=== PATIENT | female | born 1955 | race Caucasian/White ===

== ENCOUNTER 2018-05-27 10:09 | Emergency (ER) | payer MEDICARE, OTHER ==
[2018-05-27 10:35] VITALS: BP 128/77
[2018-05-27] MEDS ORDERED: LEVOTHYROXIN100 MC1 PO (10:45)
[2018-05-27] MEDS ORDERED: GLIMEPIRIDE4 MG PO (10:46)
[2018-05-27] MEDS ORDERED: BENZTROPINE1 MG PO (10:46)
[2018-05-27] MEDS ORDERED: HALOPERIDOL10 MG PO (10:47)
[2018-05-27] MEDS ORDERED: LORAZEPAM0.5 MG PO (10:47)
[2018-05-27] MEDS ORDERED: RISPERIDONE1 MG PO (10:48)
[2018-05-27 10:53] LABS: HEMATOCRIT 29.6 % (37.0-47.0); HEMOGLOBIN 9.8 g/dl (12.0-16.0); IMMATURE GRANULOCYTES 0.3 % (0.0-1.0); MEAN CELL VOLUME 90.2 fL CALC (80.0-100.0); MEAN CORPUSCULAR HGB 29.9 pG CALC (26.0-32.0); MEAN CORPUSCULAR HGB CONC 33.1 g/L CALC (32.0-36.0); NEUT# 8.12 thou/uL (2.00-7.15); RED BLOOD COUNT 3.28 mill/uL (4.20-5.60); RED CELL DISTRI WIDTH 14.2 % (11.5-15.5)
[2018-05-27 11:29] LABS: ALBUMIN 3.2 g/dL (3.2-5.0); ALKALINE PHOSPHATASE 176 u/l (38-126); BILIRUBIN, TOTAL 0.7 mg/dL (0.0-1.4); BUN 16 mg/dL (7-17); BUN/CREATININE RATIO 30 (12-20 (CALC)); CARBON DIOXIDE 30 mmol/l (22-30); CHLORIDE 99 mmol/l (95-108); CREATININE 0.5 mg/dL (0.5-1.0); GFR > 60 ML/MIN (>=60 (CALC)); GFR FOR AFR.AMER. > 60 ML/MIN (>=60 (CALC)); POTASSIUM 4.4 mmol/l (3.5-5.1); SGOT/AST 46 u/l (14-36); SGPT/ALT 88 u/l (9-52); TOTAL PROTEIN 6.3 g/dL (6.3-8.2)
[2018-05-27 11:30] LABS: ANION GAP 9 (6-22 (CALC)); SODIUM 134 mmol/l (137-146)
[2018-05-27 12:23] LABS: URINE BILIRUBIN - DIPSTICK NEGATIVE (NEGATIVE); URINE BLOOD DIPSTICK SMALL (NEGATIVE); URINE COLOR YELLOW; URINE GLUCOSE - DIPSTICK NEGATIVE (NEGATIVE); URINE KETONE 15 mg/dL (NEGATIVE); URINE LEUK ESTERASE NEGATIVE (NEGATIVE); URINE PROTEIN - DIPSTICK NEGATIVE (NEG-TRACE); URINE SPECIFIC GRAVITY <=1.005; URINE UROBILINOGEN - DIPSTICK 0.2 E.U./dL (0.2)
[2018-05-27 12:29] LABS: URINE CLARITY CLEAR; URINE NITRITE - DIPSTICK POSITIVE (Negative)
[2018-05-27 12:37] LABS: URINE BACTERIA FEW hpf; URINE SQUAMOUS EPITHELIAL CELL FEW EPI/hpf (0-FEW)
[2018-05-27] MEDS ORDERED: BACTRIM DS1 TAB PO (12:47)
== END 2018-05-27 13:15 ==
LOC: ED 10:09
PROVIDERS: Emergency Medicine
PROC: 0T9B70Z Drainage of Bladder with Drainage Device, Via Natural or Artificial Opening (ICD-10-PCS; principal; 2018-05-27)
PROC: 0HQ1XZZ Repair Face Skin, External Approach (ICD-10-PCS; 2018-05-27)
DX: S01.81XA Laceration without foreign body of other part of head, initial encounter (principal); W05.0XXA Fall from non-moving wheelchair, initial encounter; Y92.129 Unspecified place in nursing home as the place of occurrence of the external cause; B96.20 Unspecified Escherichia coli [E. coli] as the cause of diseases classified elsewhere; F03.90 Unspecified dementia, unspecified severity, without behavioral disturbance, psychotic disturbance, mood disturbance, and anxiety

== ENCOUNTER 2018-09-02 20:27 | Emergency (ER) | payer MEDICARE, OTHER ==
[~2018-09-02] VITALS: Ht 170.2 cm; Wt 59.0 kg
[~2018-09-02 20:27] MED LIST: BACTRIM DS1 TAB PO; BENZTROPINE1 MG PO; GLIMEPIRIDE4 MG PO; LEVOTHYROXIN100 MC1 PO; RISPERIDONE1 MG PO
[2018-09-02] MEDS ORDERED: AMMONIUM LAC122 EX (21:03)
[2018-09-02] MEDS ORDERED: LEVOTHYROXIN50 MCG PO (21:06)
[2018-09-02] MEDS ORDERED: GLIMEPIRIDE2 MG PO (21:06)
[2018-09-02] MEDS ORDERED: METFORMIN500 M2 PO (21:07)
[2018-09-02] MEDS ORDERED: LORAZEPAM0.5 MG PO (21:08)
[2018-09-02] MEDS ORDERED: [UNRECOGNIZED DRUG - OTHER] EX (21:10)
[2018-09-02] MEDS ORDERED: HALOPERIDOL10 MG PO (21:24)
[2018-09-02 23:30] VITALS: BP 117/66
[2018-09-02] MEDS ORDERED: ULTRAM50 M1 PO (23:42)
== END 2018-09-02 23:50 | disposition home or self-care (01) ==
LOC: ED 20:27
PROC: 2W39X1Z Immobilization of Left Upper Extremity using Splint (ICD-10-PCS; principal; 2018-09-02)
DX: S42.342A Displaced spiral fracture of shaft of humerus, left arm, initial encounter for closed fracture (principal); M25.422 Effusion, left elbow; W17.89XA Other fall from one level to another, initial encounter; Y93.E1 Activity, personal bathing and showering; Y92.128 Other place in nursing home as the place of occurrence of the external cause

== ENCOUNTER 2018-09-11 07:02 | Inpatient (IN) | payer MEDICARE, OTHER ==
[~2018-09-11] VITALS: Ht 170.2 cm; Wt 67.3 kg
[2018-09-11] VITALS (11 sets, daily range): BP systolic 80–102; BP diastolic 47–55
[~2018-09-11 07:02] MED LIST changes: +AMMONIUM LAC122 EX; +GLIMEPIRIDE2 MG PO; +HALOPERIDOL10 MG PO; +LEVOTHYROXIN50 MCG PO; +LORAZEPAM0.5 MG PO; +METFORMIN500 M2 PO; +ULTRAM50 M1 PO; +[UNRECOGNIZED DRUG - OTHER] EX
--- NOTE | 2018-09-11 07:05 | NUR ---
PATIENT ARRIVES VIA EMS, ALERT AND NONVERBAL. ORTHOSPLINT IN PLACE, BRUISING NOTED TO LEFT UPPER EXTREMITY IN MULTIPLE STAGES OF HEALING. AT BEDSIDE.
[2018-09-11 07:29] LABS: HEMATOCRIT 25.3 % (37.0-47.0); HEMOGLOBIN 8.3 g/dl (12.0-16.0); IMMATURE GRANULOCYTES 0.4 % (0.0-5.0); MEAN CELL VOLUME 87.2 fL CALC (80.0-100.0); MEAN CORPUSCULAR HGB 28.6 pG CALC (26.0-32.0); MEAN CORPUSCULAR HGB CONC 32.8 g/L CALC (32.0-36.0); NEUT# 6.36 thou/uL (2.00-7.15); RED BLOOD COUNT 2.9 mill/uL (4.20-5.60); RED CELL DISTRI WIDTH 14.6 % (11.5-15.5)
--- NOTE | 2018-09-11 07:30 | NUR ---
PATIENT REPONDS TO CAREGIVEN WITH INCOMPREHENSIBLE SPEECH.
--- NOTE | 2018-09-11 07:30 | NUR ---
SEX THERAPIST AT BEDSIDE, UNABLE TO PROVIDE ACCURATE HISTORY OF PATIENT. SEX THERAPIST TO RETRIEVE PATIENT INFORMATION FROM FACILITY.
[2018-09-11 07:41] LABS: ANION GAP 15 (6-22 (CALC)); BUN 23 mg/dL (8-23); BUN/CREATININE RATIO 46 (12-20 (CALC)); CARBON DIOXIDE 27 mmol/l (22-30); CHLORIDE 96 mmol/l (95-108); CREATININE 0.5 mg/dL (0.5-1.0); GFR > 60 ML/MIN (>=60 (CALC)); GFR FOR AFR.AMER. > 60 ML/MIN (>=60 (CALC)); POTASSIUM 4.7 mmol/l (3.5-5.1); SODIUM 133 mmol/l (137-146)
--- NOTE | 2018-09-11 07:45 | NUR ---
PATIENT NOTED TO HAVE LARGE AREA OF ECCHYMOSIS FROM LEFT RIBS TO LEFT HIP, MILL TENDER SECOND OPERATOR REPORTS INCREASE PATIENT FALLS AFTER LEFT ARM FRACTURE. STERI STRIPS APPLIED TO 4CM SKIN TEAR TO RFA, PATIENT ARRIVED TO ED WITH DRESSING IN PLACE, REDNESS NOTED TO RIGHT HAND BELOW DRESSING. HEALING ROUND WOUNDS NOTED TO BILATERAL LOWER EXTERMITIES, +2 PITTING EDEMA NOTED TO BILATERAL LOWER EXTERMITIES.
[2018-09-11 07:47] LABS: INFLUENZA A NONE DETECTED (NONE DETECT); INFLUENZA B NONE DETECTED (NONE DETECT)
--- NOTE | 2018-09-11 08:05 | NUR ---
PATIENT TOLERATED STRAIGHT CATH WELL, URINE SAMPLE COLLECTED. WARM BLANKETS APPLIED TO TREAT RECTAL TEMP OF 94.5. DR MOREJON INFORMED. BRO HUGGER AND WARMED FLUIDS ORDERED.
[2018-09-11 08:09] LABS: URINE BILIRUBIN - DIPSTICK NEGATIVE (NEGATIVE); URINE BLOOD DIPSTICK NEGATIVE (NEGATIVE); URINE CLARITY CLEAR; URINE COLOR YELLOW; URINE GLUCOSE - DIPSTICK >=1000 mg/dL (NEGATIVE); URINE KETONE 15 mg/dL (NEGATIVE); URINE LEUK ESTERASE NEGATIVE (NEGATIVE); URINE NITRITE - DIPSTICK NEGATIVE (Negative); URINE PH 5.5 (4.5-8.0); URINE PROTEIN - DIPSTICK NEGATIVE (NEG-TRACE)
--- NOTE | 2018-09-11 08:38 | NUR ---
PATIENT RETURNS FROM CT SCAN, X-RAY REPORT LEAK FROM RAC IV SITE, BLOOD NOTED AROUND IV SITE. IV SITE D/C. X-RAY AT BEDSIDE FOR PORTABLE HIP X-RAY.
--- NOTE | 2018-09-11 09:00 | NUR ---
BRO LOU IN PLACE AND WARMED IV FLUIDS INFUSING WELL. PATIENT IS RESTING WITH EYES CLOSED, RESPONDS TO PAINFUL STIMULI, RESPIRATIONS ARE EVEN AND UNLABORED AT BEDSIDE,INFORMED OF SWELLING TO BILATERAL LOWER EXTERMITIES. WILL CONTINUE TO MONITOR.
--- NOTE | 2018-09-11 09:10 | NUR ---
PATIENT NOTED TO HAVE RESPIRATIONS 10 BREATHS PER MIN. INFORMED.
--- NOTE | 2018-09-11 09:20 | NUR ---
0.4 MG OF NARCAN GIVEN PATIENT CONTINUES TO BE RESTING WITH EYES CLOSED. RESPIRATIONS AT 12 BREATHS PER MIN. RESPOND TO PAINFUL STIMULI, AT BEDSIDE.
--- NOTE | 2018-09-11 09:24 | NUR ---
VERBAL ORDER FROM TO INFUSE SECOND BAG OF NS BOULS TO TREAT LOW BP.
--- NOTE | 2018-09-11 09:36 | NUR ---
INFORMED OF TEMP 93.8 RECTAL, ADDITIONAL WARM BLANKETS APPLIED, WARMS IV FLUIDS CONTINUE TO INFUSE AND BRO HUGGER IN PLACE.
--- NOTE | 2018-09-11 09:50 | NUR ---
HUC AT BEDSIDE.
--- NOTE | 2018-09-11 10:00 | NUR ---
ASIC DESIGN ENGINEER PROVIDES DRIER TAKE OFF TENDER CARD FOR PATIENT. STAFF: AYANA AT [facility] PHONE NUMBER [phone].
--- NOTE | 2018-09-11 10:05 | NUR ---
AT BEDSIDE TO ATTEMPT CENTRAL LINE PLACEMENT TO RIGHT GROIN. LALITO LEON AT BEDSIDE TO ASSIST.
[2018-09-11] MEDS ORDERED: VISTARIL 50MG C50 M1 PO (10:12)
[2018-09-11] MEDS ORDERED: RISPERIDONE2 MG PO (10:12)
--- NOTE | 2018-09-11 10:17 | NUR ---
ASSISTED DR MOREJON AT BEDSIDE FOR RIGHT SIDED FEMORAL CENTRAL LINE. PT TOLERATED WITHOUT DIFFICULTY.
--- NOTE | 2018-09-11 10:30 | NUR ---
BRACE REMOVED, PATIENT PLACE IN SLING. SWELLING NOTED TO LEFT UPPER EXTERMITY. UPON TEMP RECHECK LEFT EAR NOTED TO BE SWOLLEN.
--- NOTE | 2018-09-11 10:37 | NUR ---
PATIENT TOLERATED OTOOLE PLACEMENT WELL, X2 STAFF ASSIST. APPROX 100 ML OF CLEAR YELLOW URINE OUT AT THIS TIME.
--- NOTE | 2018-09-11 10:42 | NUR ---
REPORT CALLED TO LALITO CEDILLO. ASKED TO CALL BACK AT THIS TIME.
--- NOTE | 2018-09-11 11:00 | NUR ---
REPORT RECVD FROM LALITO CLARK IN ER.
--- NOTE | 2018-09-11 11:00 | NUR ---
FINISHED GIVING REPORTS TO LALITO CEDILLO.
--- NOTE | 2018-09-11 11:02 | NUR ---
X-RAY CALLED FOR CONFORMATION X-RAY OF CENTRAL LINE.
--- NOTE | 2018-09-11 11:30 | NUR ---
PATIENT TRANSPORTED TO ICU WITH GAMING DEALER IN PLACE. NO CHANGE IN PATIENT CONDITION. CARE RELINQUISHED TO LALITO CEDILLO.
--- NOTE | 2018-09-11 11:40 | NUR ---
PT ARRIVED TO ICU 4 BY STRETCHER FROM ER. PT LETHARGIC, A&Ox0, VERBAL BUT NONCOHERENT/UNDERSTANDABLE. PT PCKING HEAD UP AND PICKING AT BLANKETS/LAP.
--- NOTE | 2018-09-11 12:00 | NUR ---
BEARHUGGER REAPPLIED. PT RESTING IN BED.
--- NOTE | 2018-09-11 12:30 | NUR ---
DR GRAVES @BEDSIDE, ASSESSING PT.
--- NOTE | 2018-09-11 13:00 | NUR ---
PICTURES TAKEN OF BRUISES/WOUNDS & PRINTED TO CHART
--- NOTE | 2018-09-11 13:27 | NUR ---
URINE SAMPLE COLLECTED FROM PORT IN [facility].
--- NOTE | 2018-09-11 15:19 | NUR ---
BEARHUGGER LOWERED TO LOWEST SETTING. PT TYM TEMP 97.4 TRIED TO WAKE PT UP TO DRINK WATER. EYES OPENED BUT PT DID NOT EVEN ATTEMPT TO DRINK, NO PURSING OF THE LIPS, NO SWALLOWING.
--- NOTE | 2018-09-11 15:52 | NUR ---
#16 NG TUBE PLACED IN RIGHT NOSTRIL, ATTACHED TO SUCTION.
--- NOTE | 2018-09-11 16:27 | NUR ---
DR GRAVES @BEDSIDE TO EXAMINE PTS LEFT EAR. STATES EDEMA IS DUE TO PT LAYING ON THAT SIDE. UNABLE TO REPOSITION PT AWAY FROM LEFT EAR.
--- NOTE | 2018-09-11 16:47 | NUR ---
PORT XR @BEDSIDE FOR NG TUBE PLACEMENT VERIFICATION. SUCTION TURNED OFF UNTIL PLACEMENT VERIFIED BY RADIOLOGIST.
--- NOTE | 2018-09-11 17:24 | NUR ---
CONOR RIDER CALLED AND SPOKE WITH COWORKER ABOUT PT. STATES SHE ASSIST @ PTS FACILITY. STATES PT CAN STAND BUT HAS NOT WALKED IN 3 MONTHS; PT TALKS BUT IT IS NOT COHERENT. STATES PT REFUSES INSULIN FOR DIABETES, BGL WAS >100 ON FRIDAY AND > 200 ON FRIDAY & FRIDAY, USUAL BGL IN 70'S. STATES THAT HER ADULT SCHOOL COUNSELOR COMES BY MONTHLY TO VISIT PT AND PT IS STILL COMPETENT TO CARE FOR HERSELF. NO REAL FAMILY INVOLVEMENT BUT LEFT THE NAME ISAEL MACHADO @ [phone]. CONOR'S # IS [phone]. WHEN I TRIED TO CALL BACK, NOONE ANSWERED THE PHONE.
--- NOTE | 2018-09-11 17:49 | NUR ---
TEMP 96.0. BEARHUGGER CHANGED TO MEDIUM TEMP. IV ABX STARTED. LACTALOSE GIVEN BY NG TUBE & FLUSHED WITH 20CC WATER. SUCTION REMAINS OFF AT THIS TIME.
--- NOTE | 2018-09-11 18:19 | NUR ---
PT TURNED TO RIGHT SIDE, LEFT SIDE PROPPED ON PILLOW. DUODERM PLACED ON LESION TO LEFT BUTTOCKS.
--- NOTE | 2018-09-11 18:48 | NUR ---
HER "CAREGIVER" CALLED TO CHECK IN. STATES SHE WORKS AT [employer]. NO NEW INFORMATION.
--- NOTE | 2018-09-11 18:55 | NUR ---
REPORT FROM Rafaela GARCIA RN. ASSUMED PT. CARE.
--- NOTE | 2018-09-11 19:45 | NUR ---
PT. FOUND RESTING IN BED WITH EYES CLOSED. OPENS EYES TO VERBAL/LIGHT TACTILE STIMULATION, BUT CLOSES THEM SOON AFTER LOOKING AROUND. PT. NON-VERBAL WITH THIS RN. UNABLE TO OBTAIN ORIENTATION STATUS. SOMNOLENT, RETURNS TO SLEEP AND SNORING SOON AFTER AROUSAL. LUNGS CTA. PT. DENIES PAIN BY SHAKING HEAD NO WHEN ASKED IF SHE HAS PAIN. TEMP 97 WITH [address] IN PL[address]. BP SLIGHTLY HYPOTENSIVE AT 95/50. IV FLUIDS INFUSING AT 100CC/HR. WILL CLOSELY MONITOR. SKIN WARM AND DRY. RT. FEMORAL CENTRAL LINE REMAINS INTACT, TRIPLE LUMENS FLUSHED AT THIS TIME, ALL PORTS WITH GOOD BLOOD RETURN AND EASY FLUSH. CALL LIGHT WITHIN REACH. NG TUBE IN PLACE WITH GREEN GASTRIC CONTENT DRAINAING. OTOOLE CATHETER IN PLACE WITH CLOUDY YELLOW URINE DRAINING TO BAG. BOWEL SOUND PRESENT X 4 QUADS. 3+ LOWER EXT EDEMA NOTED. LEUNG. PUPIL 3, EQUAL AND REACTIVE.
--- NOTE | 2018-09-11 21:00 | NUR ---
PT. MEDICATED WITH LACTULOSE PER NG TUBE. NG TUBE CLAMPED AT THIS TIME. VSS. PT. REMAINS WITH BRO LOU IN PLACE AT THIS TIME.
--- NOTE | 2018-09-11 22:05 | NUR ---
PT. NG TUBE PLACED BACK TO LOW INTERMITTENT SUCTION AT THIS TIME. PT. ATTEMPTING TO PULL OFF BRO HUGGER AND LINENS AT THIS TIME. PULLING DOWN GOWN WELL. PT. REMAINS NON-VERBAL WITH CAREGIVERS. STARTING TO PULL AT LINES/TUBES. REORIENTED TO SITUATION. WILL CONTINUE TO MONITOR.
--- NOTE | 2018-09-11 22:48 | NUR ---
PT. CONTINUES TO PULL AT LINES AND TUBES. AGAIN REORIENTED TO SITUATION. WILL CONTINUE TO MONITOR.
[2018-09-12] VITALS (24 sets, daily range): BP systolic 93–120; BP diastolic 51–71
--- NOTE | 2018-09-12 00:09 | NUR ---
BRO LOU REMAINS OFF AT THIS TIME. PT. TEMP NOW 99.1. ZOSYN INFUSING WITHOUT SX OF INFILTRATION OR REACTION.
--- NOTE | 2018-09-12 00:39 | NUR ---
PT. RESTING WITH EYES CLOSED IN NO DISTRESS. IV FLUIDS CONTINUE TO INFUSE AT 100 CC/HR. INTERMITTENT SNORING RESPIRATIONS. BP REMAINS SLIGHTLY LOW, BUT STABLE.
--- NOTE | 2018-09-12 02:18 | NUR ---
PT. RESTING WITH SNORING RESPIRATIONS. NG TUBE REMAINS INTACT WITH GREEN DRAINAGE. VSS. REMAINS OFF THE BRO HUGGER AT THIS TIME. CALL LIGHT REMAINS WITHIN REACH. WILL CONTINUE TO MONITOR.
--- NOTE | 2018-09-12 04:05 | NUR ---
PT. AWAKE, ALERT. ORIENTED TO PERSON, PLACE AND YEAR. UNSURE OF MONTH, BUT WITH ODD AFFECT. PT. STATES SHE IS "BLIND", BUT WHEN A FINGER IS PUSHED TOWARDS HER EYES SHE BLINKS. PT. IS UNSURE OF WHY SHE IS HERE AND ALSO STATES SHE IS UNSURE OF WHERE SHE IS CURRENTLY LIVING. TEMP NOW 96.6. WILL ASSESS FOR NEED TO REINITIATE BRO LOU. VSS. BP REMAINS SLIGHTLY LOW.
[2018-09-12 05:45] LABS: HEMATOCRIT 20.8 % (37.0-47.0); MEAN CELL VOLUME 89.3 fL CALC (80.0-100.0); MEAN CORPUSCULAR HGB 29.2 pG CALC (26.0-32.0); MEAN CORPUSCULAR HGB CONC 32.7 g/L CALC (32.0-36.0); NEUT# 5.95 thou/uL (2.00-7.15); RED BLOOD COUNT 2.33 mill/uL (4.20-5.60); RED CELL DISTRI WIDTH 14.9 % (11.5-15.5)
[2018-09-12 05:48] LABS: HEMOGLOBIN 6.8 g/dl (12.0-16.0)
[2018-09-12 05:49] LABS: ALKALINE PHOSPHATASE 130 u/l (38-126); ANION GAP 10 (6-22 (CALC)); BILIRUBIN, TOTAL 0.7 mg/dL (0.0-1.4); BUN 14 mg/dL (8-23); BUN/CREATININE RATIO 23 (12-20 (CALC)); CARBON DIOXIDE 30 mmol/l (22-30); CHLORIDE 103 mmol/l (95-108); CREATININE 0.6 mg/dL (0.5-1.0); GFR > 60 ML/MIN (>=60 (CALC)); GFR FOR AFR.AMER. > 60 ML/MIN (>=60 (CALC)); MAGNESIUM 1.5 mg/dL (1.6-2.3); POTASSIUM 4.2 mmol/l (3.5-5.1); SGOT/AST 24 u/l (9-36); SODIUM 139 mmol/l (137-146); TOTAL PROTEIN 4.9 g/dL (6.3-8.2)
[2018-09-12 05:50] LABS: ALBUMIN 2.3 g/dL (3.2-5.0)
--- NOTE | 2018-09-12 07:15 | NUR ---
PT LAYING IN BED WITH EYES CLOSED, PT WAS ABLE TO TELL ME WHERE SHE IS, WHO THE PRESIDENT IS AND HER NAME. RESP EVEN AND UNLABORED; LUNGS CLEAR, HYPOACTIVE BOWEL SOUNDS; NG TUBE R. NOSTRIL; L. ARM IN A SLING, L.HAND EDEMATOUS; BRUISED TO L. SIDE; OPEN AREA TO L. BUTTOCK COVERED WITH DUODERM; R. ANTERIOR CENTRAL LINE TRIPLE LUMEN R PELVIS FLUSHED WITHOUT DIFFICULTY; #20 R.HAND IVS 100CC/HR, NO REDNESS NOTED; OTOOLE PATENT AND SECURE WITH LEG STRAP. TRACE EDEMA NIESHA LEGS; WILL CONTINUE TO MONITOR.
[2018-09-12 07:25] LABS: HEMATOCRIT 20.8 % (37.0-47.0); IMMATURE GRANULOCYTES 0.5 % (0.0-5.0); MEAN CELL VOLUME 88.9 fL CALC (80.0-100.0); MEAN CORPUSCULAR HGB 28.6 pG CALC (26.0-32.0); MEAN CORPUSCULAR HGB CONC 32.2 g/L CALC (32.0-36.0); NEUT# 6.14 thou/uL (2.00-7.15); RED BLOOD COUNT 2.34 mill/uL (4.20-5.60); RED CELL DISTRI WIDTH 15.2 % (11.5-15.5)
[2018-09-12 07:26] LABS: HEMOGLOBIN 6.7 g/dl (12.0-16.0)
--- NOTE | 2018-09-12 07:39 | NUR ---
CRITICAL LAB HGB 6.7; DR GRAVES CALLED WITH RESULTS AND ORDERED RECEIVED.
--- NOTE | 2018-09-12 08:46 | NUR ---
ATTEMPTED TO CALL [facility] [phone] NO ANSWER, CALLED [phone] WITH ASSISTANCE FOR ISAEL TO CALL US.
--- NOTE | 2018-09-12 08:54 | NUR ---
ISAEL CALLED BACK SAID AYANA IS RETAIL LOAN OFFICER OF PT ([phone]) CALLED AYANA BUT NA.
--- NOTE | 2018-09-12 09:07 | NUR ---
PT WAS ASKED SEVERAL TIMES IF SHE WOULD CONCENT TO BLOOD PROUDCTS AND EACH TIME SHE DECLINED AND SPELL THE WORD NO; AT THIS TIME PT UNABLE TO STATE WHERE SHE'S AT AND REFUSED TO GIVE NAME AND . NO S/S OF DISTRESS NOTED. WILL CONTINUE TO MONITOR.
--- NOTE | 2018-09-12 10:02 | NUR ---
[facility] CALLED STATED THAT PT CAN SIGN HER OWN CONCENT OR TO CALL [facility]; TOLD HER PT UNABLE TO SIGN, SHE STATED THAT PT HAS BEEN REFUSING HER MEDS AND THEY ARE TRYING TO PLACE HER IN A SKILLED NURSING.
--- NOTE | 2018-09-12 10:22 | NUR ---
PT ALERT TO PERSON ONLY, PT CONFUSED AT MOMENT UNABLE TO GIVE CONSENT TO BLOOD TRASFUSION, SPOKE WITH DR GRAVES WHO GAVE CONSENT TO GO AHEAD WITH BLOOD TRANSFUSION.
--- NOTE | 2018-09-12 10:27 | NUR ---
MUNIR,DECKHAND TUNA BOAT AT BED SIDE WITH PT.
--- NOTE | 2018-09-12 10:57 | NUR ---
1st unit of prbc's verified at bedside as per protocol; pt explained sone s/sx of potential reaction and to notify staff immediately of such; promotion writer remains at bedside per protocol; 1st unit of prbcs infusing without difficulty to right fem TLC
--- NOTE | 2018-09-12 12:04 | NUR ---
PRBC INFUSING WELL; INSULIN ADMINISTERED PER EMAR; PT CONTINUES TO BE CONFUSED; NO S/S OF DISTRESS NOTED. OTOOLE PATENT DRAINING CLEAR MELVI URINE. WILL CONTINUE TO MONITOR.
--- NOTE | 2018-09-12 14:15 | NUR ---
1UNIT PRBC COMPLETED, PT TOLERATED WELL, NO S/S OF DISTRESS NOTED; NO S/S OF TRANSFUSION REACTION NOTED; LINES FLUSHED AND CHANGED.
--- NOTE | 2018-09-12 14:25 | NUR ---
law writer at bedside to monitor for s/s of reaction; pt explained possible s/s of reaction including itching, sob, rash, chest pain; informed pt to notify staff of such; iv site patent; will continue to monitor
--- NOTE | 2018-09-12 14:26 | NUR ---
2ND UNIT PRBC STARTED NOW, IV TUBING CHANGED AND FLUSHED; VITALS STABLE, HYPOTHERMIA NOTED. WILL CONTINUE TO MONITOR.
--- NOTE | 2018-09-12 15:00 | NUR ---
LACTULOSE ADMINISTER VIA NG TUBE, PT TOLERATED WELL. NG TUBE CLAMPED; PRBC CONTINUES TO INFUSE WELL; NO S/S DISTRESS NOTED. WILL CONTINUE TO MONITOR.
--- NOTE | 2018-09-12 15:58 | NUR ---
NG TUBE TURN BACK ON INTERMITTEN, REMAIN INTACT WITH LIGHT BROWN DRAINAGE. OTOOLE PATENT.
--- NOTE | 2018-09-12 17:12 | NUR ---
TRANSFUSION COMPLETED, PT TOLERATED WELL, NO S/S OF ITCHING, RASH, OR FEVER NOTED; LR RUNNING AT 100CC/HR; PT REPOSITION; WILL CONTINUE TO MONITOR.
--- NOTE | 2018-09-12 18:08 | NUR ---
PT REPOSITION, MEDICATED PER EMAR, OTOOLE PATENT, NG TUBE INTACT; NO S/S OF DISTRESS NOTED; WILL CONTINUE TO MONITOR.
--- NOTE | 2018-09-12 19:30 | NUR ---
PT RESTING IN BED WITH EYES CLOSED. PT AROUSES TO VERBAL STIMULI. PT IS TALKING HOWEVER REFUSES TO ANSWER QUESTION OF NAME AND . PT MAKING STATEMENT ABOUT WAX AND MILK. SHIFT ASSESSMENT COMPLETED AT THIS TIME. IV PATENT X2. CALL LIGHT IN REACH. WILL CONTINUE TO MONITOR.
--- NOTE | 2018-09-12 21:42 | NUR ---
PT MEDICATED PER JAN. PT IN SEMI FOWLERS POSITION FOR MEDICATION. NG TUBE CLAMPED FOR 1 HOUR FOR MEDICATION ABSORPTION. PT CONTINUES TO MAKE INAPPROPRIATE STATEMENTS. ORAL CARE PROVIDED BY PT WITH REBEKAH. CALL LIGHT IN REACH. WILL CONTINUE TO MONITOR
--- NOTE | 2018-09-12 23:00 | NUR ---
ng tube placed back on to LIS.
--- NOTE | 2018-09-12 23:51 | NUR ---
PT RESTING IN BED WITH EYES CLOSED. RESP ARE EVEN AND UNLABORED. NO DISTRESS NOTED. CALL LIGHT IN REACH. WILL CONTINUE TO MONITOR
[2018-09-13] VITALS (10 sets, daily range): BP systolic 110–127; BP diastolic 60–70
--- NOTE | 2018-09-13 01:48 | NUR ---
PT RESTING IN BED WITH EYES CLOSED. RESP ARE EVEN AND UNLABORED. NO DISTRESS NOTED. CALL LIGHT IN REACH. WILL CONTINUE TO MONTIOR
--- NOTE | 2018-09-13 04:00 | NUR ---
PT RESTING IN BED WITH EYES CLOSED. RESP ARE EVEN AND UNLABORED. NO DISTRESS NOTED. CALL LIGHT IN REACH. WILL CONTINUE TO MONITOR.
--- NOTE | 2018-09-13 04:45 | NUR ---
AM LABS DRAWN FROM TLC. PT TOLERATED WELL
[2018-09-13 05:27] LABS: IMMATURE GRANULOCYTES 0.5 % (0.0-5.0); MEAN CELL VOLUME 87.5 fL CALC (80.0-100.0); MEAN CORPUSCULAR HGB CONC 33.1 g/L CALC (32.0-36.0); NEUT# 5.97 thou/uL (2.00-7.15); RED BLOOD COUNT 3.45 mill/uL (4.20-5.60); RED CELL DISTRI WIDTH 15.1 % (11.5-15.5)
[2018-09-13 05:28] LABS: HEMATOCRIT 30.2 % (37.0-47.0)
[2018-09-13 05:34] LABS: ALBUMIN 2.4 g/dL (3.2-5.0); ALKALINE PHOSPHATASE 136 u/l (38-126); ANION GAP 11 (6-22 (CALC)); BILIRUBIN, TOTAL 0.9 mg/dL (0.0-1.4); BUN 15 mg/dL (8-23); BUN/CREATININE RATIO 23 (12-20 (CALC)); CARBON DIOXIDE 31 mmol/l (22-30); CHLORIDE 102 mmol/l (95-108); CREATININE 0.6 mg/dL (0.5-1.0); GFR > 60 ML/MIN (>=60 (CALC)); GFR FOR AFR.AMER. > 60 ML/MIN (>=60 (CALC)); MAGNESIUM 1.6 mg/dL (1.6-2.3); POTASSIUM 3.8 mmol/l (3.5-5.1); SGOT/AST 24 u/l (9-36); SODIUM 141 mmol/l (137-146); TOTAL PROTEIN 5.3 g/dL (6.3-8.2)
--- NOTE | 2018-09-13 06:05 | NUR ---
PT IN BED MOANING. PT CONTINUES TO MAKE INAPPROPRIATE COMMENTS ABOUT MILK AND DAIRY FARMS. REORIENTATION UNSUCCESSFUL. CALL LIGHT IN REACH. WILLC O NTINUE TO MONITOR
--- NOTE | 2018-09-13 07:30 | NUR ---
PT RESTNG QUIETLY IN BED .PT WAKES TO VERBAL STIMULI. PT IS CONFUSED. AWARE OF PRESIDENT AND YEAR. WHEN ASKED HER NAME SHE STATED " MARJORIE DUKES". ASSESMENT COMPLETED AT THIS TIME(SEE INTERVENTIONS). LUNG SOUNDS CLEAR BILATERALLY. HR SOUNDS REGULAR; READING 76 ON TELEMERTY. BOWEL SOUNDS HYPO ACTIVE IN x4 QUADS.PT HAS +1 EDEMA NOTED TO BILATERAL LOWER EXTREMETIES. MULTIPLE SCABBED AREAS TO LOWER EXTREMITIES. LEFT FX ARM IS SWOLLEN WITH YELLOWISH BRUSING. FOUL SMELLING YELLOW DRAINAGE NOTED FROM ARM. ECCHYMOSIS NOTED TO LOWER LEFT ABD AND HIP AREA. OTOOLE DRAINING CLEAR YELLOW URINE TO GRAVITY. #20 LEFT HAND INFUSING WELL, FREE FROM REDNESS OR EDEMA. TRIPLE LUMEN TO RIGHT GROIN AREA. MEDIAL FLUSHES WITH NO RETURN OF BLOOD, DISTAL FLUSHES WITH BLOOD RETURN, AND PROXIMAL FLUSHES. DRESSING IS DRY AND INTACT. VS WITHIN NORMAL LIMITS. NG TUBE CHECKED FOR PLACEMENT ON LOW INTERMITTENT SUCTION WITH YELLOW GASTRIC CONTENT NOTED. PT HAVING NO PAIN UNLESS MOVED AND REPOSITIONED. VOICING NO COMPLAINTS. PT CONTINUES WITH INNAPROPRIATE CONVERSATION ABOUT MILK, HONEY AND MEATS. ASKING BF TO HER (NO VISITORS PRESENT). WILL CONTINUE TO MONITOR.
--- NOTE | 2018-09-13 09:00 | NUR ---
PT MEDICATED PER ORDER; PER NGT PROTOCOL. PT TOLERATED WELL
--- NOTE | 2018-09-13 09:30 | NUR ---
PT BATHED AND LINENS CHANGED. FOUL SMELLING YELLOW DRAINAGE COMING FROM OPEN AREA DISTAL TO AXILLARY. DRESSING APPLIED TO AREA. PT IN PAIN WHEN REPOSITIONED. NGT CONTAINER CHANGED OUTPUT 650. PT NOW RESTING QUIETLY. IV INFUSING WELL WILL CONTINUE TO MONITOR.
--- NOTE | 2018-09-13 09:57 | NUR ---
DR GRAVES IN TO SPEAK WITH PT. NEW PLAN OF CARE DISCUSSED WITH DERMATOLOGY TEACHER AND RN SCAR. PT AWKAE AND ALERT. TALKING TO DR GRAVES ABOUT STEAK AND WINE. DR GRAVES AWARE OF OPEN AREA TO DISTAL AXILARY.
--- NOTE | 2018-09-13 09:57 | NUR ---
DR GRAVES IN TO SPEAK WITH PT. NEW PLAN OF CARE DISCUSSED WITH NUTRITION SERVICES WORKER AND RN SCAR. PT AWKAE AND ALERT. TALKING TO DR GRAVES ABOUT STEAK AND WINE. DR GRAVES AWARE OF OPEN AREA TO DISTAL AXILARY.
--- NOTE | 2018-09-13 11:25 | NUR ---
JAZMÍN FROM US IN TO SEE PT.
--- NOTE | 2018-09-13 11:38 | NUR ---
JAZMÍN FROM US COMPLETE PT TOLERATED WELL. XRAY IN TO SEE PT. TOLERATED WELL.
--- NOTE | 2018-09-13 11:46 | NUR ---
Dr Gardiner informed per this creative services writer of bradycardia; HR occasional low 50s; on unit of reviewed prior EKG and cardiac strips; order obtained and on chart
--- NOTE | 2018-09-13 14:00 | NUR ---
PT RESTING QUIETLY IN BED. MUMBLING FROM TIME TO TIME.
--- NOTE | 2018-09-13 14:00 | NUR ---
PT BATHED AND LINENS CHANGED. FOUL SMELLING YELLOW DRAINAGE COMING FROM OPEN AREA DISTAL TO AXILLARY.PHOTO OBTAINED DRESSING APPLIED TO AREA. PT IN PAIN WHEN REPOSITIONED. NGT CONTAINER CHANGED OUTPUT 650. PT NOW RESTING QUIETLY. IV INFUSING WELL WILL CONTINUE TO MONITOR.
--- NOTE | 2018-09-13 14:29 | NUR ---
PT TRIPLE LUMEN FLUSHED PER ORDER. ALL 3 FLUSH AND GIVE BLOOD RETURN.
--- NOTE | 2018-09-13 14:30 | NUR ---
PT DIGITALLY DISIMPACTED WITH MINIMAL RESULTS. PER ORDERED SOAP BHAKTI ENEMA DONE AT THIS TIME. NO PROGRESS AT THIS TIME. WILL CONTINUE TO MONITOR.
--- NOTE | 2018-09-13 15:15 | NUR ---
EARLY CHILDHOOD EDUCATION COORDINATOR ATTEMPTED x2 NEW IV UNSUCESSFUL. SCAR RN TO ATTEMPT #22 IN THE RIGHT WRIST. FLUSHES WELL CONTINUED ON FLUIDS ORDERED. PT TOLERATED WELL.
[2018-09-13 15:16] LABS: URINE BILIRUBIN - DIPSTICK SMALL (NEGATIVE); URINE BLOOD DIPSTICK MODERATE (NEGATIVE); URINE CLARITY TURBID; URINE COLOR YELLOW; URINE GLUCOSE - DIPSTICK NEGATIVE (NEGATIVE); URINE KETONE >=80 mg/dL (NEGATIVE); URINE LEUK ESTERASE NEGATIVE (Negative); URINE NITRITE - DIPSTICK NEGATIVE (Negative); URINE PROTEIN - DIPSTICK TRACE mg/dL (NEG-TRACE); URINE SPECIFIC GRAVITY 1.015
--- NOTE | 2018-09-13 15:30 | NUR ---
CENTRAL LINE TO GROIN REMOVED BY SCAR STARKEY. STADIUM ATTENDANT AT BEDSIDE OBSERVING. PT TOLERATED WELL. PT CONTINUES TO MUMBLE THINGS ABOUT RAW MILK.
[2018-09-13 16:04] LABS: URINE SQUAMOUS EPITHELIAL CELL FEW EPI/hpf (0-FEW)
--- NOTE | 2018-09-13 17:00 | NUR ---
PT RESTING QUIETLY MUMBLING TO SELF IN BED. PT CLEANED OF SCANT BM AND ENEMA WATER. PT NGT FED PER ORDER. TOLERATED WELL. PT REMAINS IN HIGH FOWLERS. MEDICATED PER ORDER. IV INFUSING WELL. NASATIN APPLIED TO GLUTEAL CREASE.
--- NOTE | 2018-09-13 19:30 | NUR ---
PT RESTING IN BED ON RIGHT SIDE WITH HEAD ELEVATED. PT IS ALERT HOWEVER NOT ORIENTED. SHIFT ASSESSMENT COMPLETED AT THIS TIME. PT MAKES INAPPROPRAITE COMMENTS ABOUT CHEESE AND ROYAL FAMILY. IV PATENT X1. CALL LIGHT IN REACH. WILL CONTINUE TO MONITOR.
--- NOTE | 2018-09-13 21:05 | NUR ---
HS MEDS GIVEN PER JAN. SSE GIVEN PER MD ORDERS. PT ON BED RAMÍREZ. PT TOLERATED SSE WELL.
--- NOTE | 2018-09-13 21:30 | NUR ---
PT ASSISTED OFF OF BED RAMÍREZ. EXTRA LARGE LOOSE/LIQUID BM. PT CLEANSED LINENS CHANGED. PT REPORTS FELLING BETTER AND IS HUNGRY.
--- NOTE | 2018-09-13 23:54 | NUR ---
PT HAD A MODERATED SIZ BM. PT CLEANSED AND LINENS CHANGED. PT REPOSITIONED IN BED AND HOB ELEVATED FOR TUBE FEEDING. 1 CAN OF GLUCERNA PROVIDED WITH A 20CC H2O. PT TONY,ERATED WELL. PT QUESTIONING WHY SHE CANNOT JUST DRINK. HOB WILL REMAIN ELEVATED TO PREVENT ASPIRATION. CALL LIGHT IN REACH. WILL CONTINUE TO MONITOR.
[2018-09-14] VITALS (12 sets, daily range): BP systolic 108–133; BP diastolic 56–74
--- NOTE | 2018-09-14 02:00 | NUR ---
PT RESTING IN BED WITH EYES CLOSED. RESP ARE EVEN AND UNLABORED. NO DISTRESS NOTED. CALL LGIHT IN REACH. WILL CONTINUE TO MONITOR
--- NOTE | 2018-09-14 04:06 | NUR ---
PT RESTING IN BED WITH EYES CLOSED. RESP ARE EVEN AND UNLABORED. NO DISTRESS NOTED. CALL LIGHT IN REACH. WILL CONTINUE TO MONITOR.
--- NOTE | 2018-09-14 05:30 | NUR ---
PT RESTING IN BED AWAKE. PT HAS REMOVED NG TUBE. PT STATES SHE WAS TIRED OF IT. MODERATE BM NOTED. PT CLEANSED AND LINENS CHANGED. NEW PICS OBTAINED OF WOUND TO LEFT BUTTOCKS. DUODERM CHANGED. PT TOLERATED WELL. CALL LIGHT IN REACH. WILL CONTINUE TO MONITOR.
--- NOTE | 2018-09-14 05:51 | NUR ---
PT REFUSING AM LAB DRAW STATING THAT IT IS MURDER. ENCOURAGED PT TO HAVE AM LABS DRAWN. PT CONTINUES TO REFUSE. WILL PASS ON TO DAY SHIFT THAT PT REFUSED AM LABS
--- NOTE | 2018-09-14 07:20 | NUR ---
PT ASLEEP AT THIS TIME. AROUSABLE TO VERBAL STIMULI. PT IS CONFUSED, INAPROPRIATE CONVERSATION. ACCUCHECK 136. VS STABLE. ASSESMENT COMPLETED AT THIS TIME(SEE INTERVENTIONS). LUNGS CLEAR BILATERALLY. HR SOUNDS NORMAL; TELEMETRY READING 58. BS HYPOACTIVE. GENERALIZED +1 PITTING EDEMA NOTED TO EXTREMITIES. PT NO LONGER HAS NGT. PT NPO THIS AM. #22 IN THE R WRIST INFUSING WELL NO REDNESS OR EDEMA. PT VOICING NO COMPLAINTS. CALL HAMILTON IN REACH. WILL CONTINUE TO MONITOR.
--- NOTE | 2018-09-14 10:10 | NUR ---
DR GRAVES IN TO SPEAK WITH PT ABOUT PLAN OF CARE. PT FOLLOWED ALL COMMANDS AND ANSWERED ALL QUESTIONS APPROPRIATELY. DR GRAVES WANTS PT OOB TO CHAIR
--- NOTE | 2018-09-14 10:26 | NUR ---
PT UP TO RECLINER WITH MODERATE ASSIST x2. PT ARGUMENTATIVE & UNCOOPERATIVE. BED LINENS CHANGED.
--- NOTE | 2018-09-14 11:30 | NUR ---
PT IN WITH PT AT THIS TIME.
--- NOTE | 2018-09-14 12:00 | NUR ---
PT BANGING FEET ON THE FLOOR. WHEN ASKED WHAT WAS WRONG SHE STATED " I'M STIMULATING MY FEET." PT BEING UNCOOPERATIVE WITH ACCUCHECK AND BP CUFF. PT YELLING THAT SHE IS HUNGRY AND SHE WANTS RAW HONEY AND RAW MILK.
--- NOTE | 2018-09-14 13:00 | NUR ---
PT YELLING TO GO BACK TO BED. x2 MAX ASSIST TO BED. UNCOOPERATIVE WITH CARE AT THIS TIME. PT CLEANED OF SCANT BM. TELLS REFUELING RAMP SUPERVISOR "TO GET THE HELL OUT OF MY ROOM."
--- NOTE | 2018-09-14 13:30 | NUR ---
PT IN WITH PT
--- NOTE | 2018-09-14 13:45 | NUR ---
PT LEFT AT THIS TIME PT RESTING QUIETLY.
--- NOTE | 2018-09-14 14:30 | NUR ---
SPOKE WITH DR GRAVES REGARDING HEART RATE 46-50s, SWALLOW EVAL AND INTAKE IS LESS THAN OUTPUT MD AWARE. PT IS UNCOOPERATIVE AND REFUSING A BATH AND ORAL CARE.
--- NOTE | 2018-09-14 16:39 | NUR ---
PT RESTING WITH EYES OPEN IN BED. THINK SOMEONE IS IN HER BATHROOM. RN CARDIOVASCULAR INFORMS PT THAT NO ONE IS IN THE BATHROOM AND OPEN THE DOOR TO SHOW PT. PT VERBAIZES UNDERSTANDING. RESTING QUIETLY NOW. WILL CONTINUE TO MONITOR. CALL HAMILTON IN REACH.
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
--- NOTE | 2018-09-14 19:00 | NUR ---
REPORT FROM Jeanine VILLASEÑOR LPN. ASSUMED PT. CARE.
--- NOTE | 2018-09-14 19:45 | NUR ---
PT. FOUND AWAKE, ALERT, ORIENTED X 3. UNCOOPERATIVE WITH CARE. STATES SHE WANT THE PLASTIC BAND OFF FROM AROUND HER WRIST. PT. INFORMED THAT WAS HER ID BAND FOR HERE IN THE HOSPITAL AND SHE STATES SHE WANTS IT OFF. BILAT LOWER EXT EDEMA. APPEARS IN NO DISTRESS. AFEBRILE. BOWEL SOUNDS PRESENT X 4 QUADS. DENIES COMPLAINTS OF PAIN AT THIS TIME. WILL CONTINUE TO MONITOR.
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
--- NOTE | 2018-09-14 22:10 | NUR ---
PT. REMAINS UNCOOPERATIVE AND PULLING AT OTOOLE CATHETER AND LINES. WILL NOTIFY PHYSICIAN.
--- NOTE | 2018-09-14 23:45 | NUR ---
ACCSTEVEN NOW 158. MEDICATED WITH 1 UNIT NOVOLOG PER ORDERS. REMAINS ORIENTED X 3, BUT UNCOOPERATIVE WITH CARE. REMAINS WITH ODD AFFECT. STATES SHE WANT'S THE ELECTRICITY TURNED OFF TO HER LEG. REASSURED AND REORIENTED TO SITUATION.
[2018-09-15] VITALS (10 sets, daily range): BP systolic 115–138; BP diastolic 63–70
--- NOTE | 2018-09-15 00:23 | NUR ---
PT. RESTING WITH EYES CLOSED. LESS AGGITATED AT THIS TIME AFTER MEDICATING WITH ATIVAN ORDERED. WILL CONTINUE TO ASSESS. VSS.
--- NOTE | 2018-09-15 01:41 | NUR ---
PT. RESTING IN BED WITH EYES CLOSED IN NO DISTRESS. RESPS REMAIN EVEN AND UNLABORED. BRADYCARDIC IN THE UPPER 40'S/50'S. VSS. IV FLUIDS CONTINUE TO INFUSE AT 50 CC/HR ORDERED.
--- NOTE | 2018-09-15 02:53 | NUR ---
PT. RESTING IN BED WATCHING TELEVISION. RESPS REMAINS EVEN AND UNLABORED. IV FLUIDS INFUSING ORDERED. CALL LIGHT REMAINS WITHIN REACH. DENIES OTHER COMPLAINTS.
--- NOTE | 2018-09-15 04:43 | NUR ---
PT. REMAINS RESTFUL AT THIS TIME. REMAINS WITH EYES CLOSED AND EVEN AND UNLABORED RESPIRATIONS. VOICES NO COMPLAINTS OR NEEDS AT THIS TIME. REMAINS MUCH IMPROVED AFTER ATIVAN ADMINISTRATION PER PHYSICIAN ORDERS. WILL CONTINUE TO ASSESS FOR AGGITATION. REMAINS STABLE AT THIS TIME IN NO DISTRESS.
--- NOTE | 2018-09-15 06:05 | NUR ---
IV ZOSYN INFUSING WITHOUT SX OF INFILTRATION OR EXTRAVASATION. PT. REMAINS MUCH MORE COOPERATIVE THIS AM AFTER ADMINISTRATION OF ATIVAN. MEDICATED PER PHYSICIAN ORDER. NO DISTRESS. REFUSING ASSIST WITH TURNING AT THIS TIME.
[2018-09-15 06:10] LABS: HEMATOCRIT 33.5 % (37.0-47.0); IMMATURE GRANULOCYTES 0.5 % (0.0-5.0); MEAN CELL VOLUME 88.6 fL CALC (80.0-100.0); MEAN CORPUSCULAR HGB 29.1 pG CALC (26.0-32.0); MEAN CORPUSCULAR HGB CONC 32.8 g/L CALC (32.0-36.0); NEUT# 7.79 thou/uL (2.00-7.15); RED BLOOD COUNT 3.78 mill/uL (4.20-5.60); RED CELL DISTRI WIDTH 14.7 % (11.5-15.5)
[2018-09-15 06:31] LABS: ALBUMIN 2.8 g/dL (3.2-5.0); ALKALINE PHOSPHATASE 159 u/l (38-126); ANION GAP 13 (6-22 (CALC)); BILIRUBIN, TOTAL 1.1 mg/dL (0.0-1.4); BUN 17 mg/dL (8-23); BUN/CREATININE RATIO 31 (12-20 (CALC)); CARBON DIOXIDE 28 mmol/l (22-30); CHLORIDE 102 mmol/l (95-108); CREATININE 0.6 mg/dL (0.5-1.0); GFR > 60 ML/MIN (>=60 (CALC)); GFR FOR AFR.AMER. > 60 ML/MIN (>=60 (CALC)); MAGNESIUM 1.7 mg/dL (1.6-2.3); SGOT/AST 18 u/l (9-36); SODIUM 138 mmol/l (137-146); TOTAL PROTEIN 5.7 g/dL (6.3-8.2)
--- NOTE | 2018-09-15 07:40 | NUR ---
pt resting in bed with eyes closed; no distress noted; easily aroused; pt offers no complaints; alert and oriented; answers questions approp; denies pain; resp even and unlabored/shallow; lungs clear diminished bases; skin color pale; ra; hr reg; strong pulses; no pedal edema noted; 1+ edema noted to bue worse to lue; abd soft with bs present; bm noted; pericare to be given; simpson to gravity draining clear yellow urine; cath strap intact; #22 to rw patent with ivf infusing without complication; no redness or edema noted at site; repositioned to right side; feet floated; multiple scabs noted to ble; bruising noted to left lat torso and left shoulder/arm; left arm with sling intact; call light within reach; will continue to monitor
--- NOTE | 2018-09-15 08:00 | NUR ---
resting in bed with eyes closed; kind and cooperative with nursing staff at this time; offers no complaints; answers all questions appropriately; pericare for lg loose bm noted; repositioned to right side; feet elevated; will continue to monitor
--- NOTE | 2018-09-15 10:06 | NUR ---
resting in bed with eyes closed; no distress noted; resp shallow; sb on monitor; call light within reach; will continue to monitor
--- NOTE | 2018-09-15 11:58 | NUR ---
continues to rest with eyes closed; easily aroused; offers no complaints; name and fate of question; pt states this medical writer is "just being nosey"; sb on monitor; iv patent; will continue to monitor
--- NOTE | 2018-09-15 13:20 | NUR ---
Dr Gardiner present at bedside
--- NOTE | 2018-09-15 14:15 | NUR ---
awake in bed; more alert; no distress noted; pt offers no complaintx except hunger; NPO status explained; pt very upset about not being able to eat; iv patent; fluids infusing without complication; sb on monitor; complete bath and linen change; refusing oral care; will continue to monitor
--- NOTE | 2018-09-15 14:50 | NUR ---
PT at bedside; pt agrumentative and refusing PT; pt up to recliner with much encouragement
--- NOTE | 2018-09-15 15:07 | NUR ---
PATIENT RESTING IN BED. NSG REPORTS HAVING JUST FINISHED BATHING HER. PATIENT TOLD NSG THAT SHE WOULD GET OOB WHEN THERAPY CAME TODAY. HOWEVER, PATIENT IS REQUESTING HER EVALUATING THERAPIST FROM YESTERDAY. "HE IS BIGGER AND CAN LIFT ME". MAX A OF 2 FOR SUPINE TO SIT. PATIENT WOULD NOT ASSIST WITH SIT TO STAND. HER NURSE CAME IN AND WE MOD A OF 2 SIT TO STAND AND MAX A OF 2 STANDING PIVOT TO CHAIR. MAX A TO SCOOT BACK IN CHAIR. PATIENT RECLINED IN CHAIR WITH PILLOW TO SUPPORT R UE IN SLING. NSG STATES THAT HER MEDICATION IS WEARING OFF, SHE HAD BEEN VERY COOPERATIVE EARLIER.
--- NOTE | 2018-09-15 16:05 | NUR ---
resting in recliner with no distress noted; resp even and unlabored; iv patent; no redness or edema noted at site; sb on monitor; call light within reach; will conitnue to monitor
--- NOTE | 2018-09-15 16:54 | NUR ---
speech therapist Rosa present at bedside; pt remains up to chair; will continue to monitor
--- NOTE | 2018-09-15 17:09 | NUR ---
per Speech Therapy, pt able to tolerate feed; Dr Gardiner informed; orders received
--- NOTE | 2018-09-15 17:49 | NUR ---
awake in recliner; no distress noted; assist with feed per this engineering writer; tolerated feed very well; no coughing/choking noted; iv patent; fluids infusing without complication; no redness or edema noted at site; sr on monitor; simpson to gravity; call light within reach
--- NOTE | 2018-09-15 18:03 | NUR ---
[employer] Dean received order for bedside swallow study 09/15/18 to assess patient's swallow and risk for aspiration. Entering Ms. Johnson's room, she was sitting in recliner with feet elevated. Head on chest and appeared to be sleeping. Easily aroused with verbal stimuli. Arts And Sciences Dean introduced to patient and she asked "what does speech and language have to do with eating?" Patient accepted explanation regarding scope of discipline to include swallowing. Patient made brief eye contact with health science writer and closed eyes. Foods, liquids and textures explained to patient before administration. Thin liquids of orange juice and water administered with no signs or symptoms of aspiration. Applesauce and pudding consumed with no signs or symptoms of aspiration. One half cracker consumed with adequate mastication and oral clearing. Patient given water to clear and was observed to swish water throughout mouth before swallow. Oral cavity clear following water. Patient stating she wants more fruit juice, more pudding. Patient said she wants five pounds of raw beef steak, heavily salted for dinner. Patient remained with eyes closed throughout evaluation. All administration of food and liquid provided by health science writer, patient currently unable to self feed secondary to IV and fractures. Patient is showing no over signs or symptoms of aspiration. Recommend frequent assessment of breath sounds, begin with soft mechanical diet and advance as appropriate. Patient should be at 90 degree angle for all oral consumption and remain at 90 degrees for 20 minutes after meals. Monitor patient's level of alertness vs sedation before administering oral nutrion/hydration. If breath sounds become atypical, patient will need modified barium swallow study to rule out silent aspiration as this cannot be assessed at bedside. 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 Thank you for this referral. Joanne Wade M.A., [facility] FINISH[facility] FORGING DIES
--- NOTE | 2018-09-15 18:45 | NUR ---
REPORT FROM Osei BUTTS RN. ASSUMED PT. CARE.
--- NOTE | 2018-09-15 19:45 | NUR ---
PT. SITTING IN CHAIR NEXT TO BED. CALLS OUT, STATES SHE WANTS TO GO BACK TO BED. COPIOUS STOOL LIQUID BROWN STOOL NOTED TO FLOOR AND ALL THROUGHOUT THE BEDSIDE CHAIR. PT. STOOD, PARTIALLY CLEANSED AND THEN ASSISTED BACK TO BED. COPIOUS PERICARE PROVIDED. OTOOLE CARE PROVIDED. PT. REMAINS AWAKE, ALERT, ORIENTED X 3. REMAINS WITH ODD AFFECT, LUNGS CTA, DIMINISHED TO BASES. DENIES COMPLAINTS OF PAIN AT THIS TIME. SLING REMAINS IN PLACE. REPOSITIONED FOR COMFORT AND LINENS CHANGED. CALL LIGHT REMAINS WITHIN REACH. WILL CONTINUE TO ASSESS.
--- NOTE | 2018-09-15 21:45 | NUR ---
PT. RESTING IN BED WITH EYES CLOSED. DENIES COMPLAINTS OF PAIN OR NEED. CALL LIGHT REMAINS WITHIN REACH. WILL CONTINUE TO MONITOR.
--- NOTE | 2018-09-15 23:43 | NUR ---
PT. RESTING IN BED WITH EYES CLOSED IN NO DISTRESS. VOICES NO COMPLAINTS OR NEED. IV FLUIDS INFUSING WIHTOUT SX OF INFILTRATION.
[2018-09-16] VITALS (12 sets, daily range): BP systolic 90–116; BP diastolic 44–70
--- NOTE | 2018-09-16 01:30 | NUR ---
PT. RESTING IN BED EYES CLOSED IN NO DISTRESS. VSS. PT. DENIES COMPLAINTS OF PAIN OR NEED. CALL LIGHT REMAINS WITHIN REACH.
--- NOTE | 2018-09-16 02:43 | NUR ---
PT. C/O A "CORD THAT IS TIGHT AROUND HER CHEST". NO CORD NOTED. ALL TELE LEADS CHECKED AND NOTHING PULLING AT THIS TIME. PT. REMAINS STABLE IN NO DISTRESS. CALL LIGHT REMAINS WITHIN REACH.
--- NOTE | 2018-09-16 02:58 | NUR ---
PT. YELLING OUT. STATING THAT SHE IS BEING ELECTROCUTED BY THE CARDIAC LEADS. APPEARS IN NO DISTRESS WITH FLAT AFFECT. PT. STATES SHE "MAY HAVE DRANK TOO MUCH RAW COW'S MILK A CHILD". NOW PATIENT FAKE CRYING AT THIS TIME. FLIGHT OF IDEAS. REMAINS STABLE, APPEARS IN NO DISTRESS. MEDICATED PER PHYSICIAN ORDERS FOR AGGITATION.
--- NOTE | 2018-09-16 03:00 | NUR ---
PT. CONTINUES TO YELL OUT LOUDLY WITH FLIGHT OF IDEAS "CIRCUMCISION RUINS SEX" AND "STOP SHOCKING ME". PT. REORIENTED TO SITUATION. SMELLS OF BOWEL GAS AT THIS TIME, PT. CHECKED FOR STOOL NONE NOTED. CONTINUES TO SCREAM OUT.
--- NOTE | 2018-09-16 06:11 | NUR ---
ANTIBIOTICS INFUSING WITHOUT SX OF INFILTRATION OR REACTIONS. REMAINS MORE COOPERATIVE, NOT YELLING OUT OR MAKING ODD COMMENTS. CALL LIGHT REMAINS WITHIN REACH. NO DISTRESS. WILL CONTINUE TO ASSESS.
[2018-09-16 06:18] LABS: HEMATOCRIT 30.4 % (37.0-47.0); HEMOGLOBIN 9.7 g/dl (12.0-16.0); IMMATURE GRANULOCYTES 0.4 % (0.0-5.0); MEAN CELL VOLUME 88.6 fL CALC (80.0-100.0); MEAN CORPUSCULAR HGB 28.3 pG CALC (26.0-32.0); MEAN CORPUSCULAR HGB CONC 31.9 g/L CALC (32.0-36.0); NEUT# 7.52 thou/uL (2.00-7.15); RED BLOOD COUNT 3.43 mill/uL (4.20-5.60); RED CELL DISTRI WIDTH 14.6 % (11.5-15.5)
[2018-09-16 06:43] LABS: ALBUMIN 2.4 g/dL (3.2-5.0); ALKALINE PHOSPHATASE 143 u/l (38-126); ANION GAP 10 (6-22 (CALC)); BILIRUBIN, TOTAL 0.6 mg/dL (0.0-1.4); BUN 14 mg/dL (8-23); BUN/CREATININE RATIO 25 (12-20 (CALC)); CARBON DIOXIDE 28 mmol/l (22-30); CHLORIDE 103 mmol/l (95-108); CREATININE 0.6 mg/dL (0.5-1.0); GFR > 60 ML/MIN (>=60 (CALC)); GFR FOR AFR.AMER. > 60 ML/MIN (>=60 (CALC)); MAGNESIUM 1.7 mg/dL (1.6-2.3); POTASSIUM 4.3 mmol/l (3.5-5.1); SGOT/AST 17 u/l (9-36); SODIUM 136 mmol/l (137-146); TOTAL PROTEIN 5.1 g/dL (6.3-8.2)
--- NOTE | 2018-09-16 06:45 | NUR ---
RECIEVED REPORT FROM LALITO MEYER. ASSUMED PT CARE.
--- NOTE | 2018-09-16 08:00 | NUR ---
PT A&OX3, ABLE TO MAKE MOST NEEDS KNOWN. SB ON TELEMETRY, HR-58. PT DENIES CHEST PAIN, SOB OR DISTRESS AT THIS TIME. RESPIRATION CLEAR IN UPPER LOBES, DIMINISHED IN LOWER LOBES, B/P-93/44, RR-10, SA02@97% RA . RESPIRATIONS EVEN/UNLABORED. ABDOMEN SOFT/NON-TENDER, BSX4 ACTIVE. LAST BM 09-16-18. OTOOLE CATHETER PATENT, DRAINING TO BSD, MELVI URINE. OTOOLE CARE PROVIDED. L ARM REMAINS IN SLING, +1 EDEMA NOTED , PULSES STRONG WITH CAP REFILL<3. PT HAS STERI-STRIPS TO RFA CDI, SCABS NOTED TO LLE, DUODERM INTACT AT GLUTEAL FOLD, BILAT HEELS OFF-LOADED WITH SKIN PREP APPLIED, HEEL GUARDS IN PLACE. IV CONTINUES TO R WRIST, INFUSING D51/2NS@50ML/HR.NO S/S OF INFILTRATION OR REDNESS AT SITE. BED IN LOWEST POSITION, CALL LIGHT IN REACH, WILL MONITOR. PT REPOSITIONED FOR COMFORT.
--- NOTE | 2018-09-16 09:30 | NUR ---
PT STARTED YELLING OUT, "THESE WIRES ARE SHOCKING ME, THE ROPE IS TO TIGHT". PT REPOSITIONED, SLING ADJUSTED, AND TELEMETRY CONNECTION CHECKED, PT THANKED THIS ELEMENTARY LIBRARIAN FOR ADJUSTMENTS, PT OFFERED FLUIDS AND EXCEPTED. CALL LIGHT IN REACH, WILL MONITOR.
--- NOTE | 2018-09-16 09:40 | NUR ---
PT CONTINUES TO YELL OUT, PT MEDICATED WITH PRN ATIVAN ORDERED. WILL MONITOR.
--- NOTE | 2018-09-16 10:30 | NUR ---
PT RESTING IN BED WITH EYES CLOSED, PT REPOSITIONED FOR COMFORT, SLING TO LUE IN PLACE, AFEBRILE. RESP. EVEN/UNLABORED. SR ON TELEMETRY, HR-70. CALL LIGHT IN REACH, WILL MONITOR.
--- NOTE | 2018-09-16 11:26 | NUR ---
DIETARY ON UNIT , LUNCH TRAY SET UP.
--- NOTE | 2018-09-16 12:00 | NUR ---
FED PT, PT ATE 100% OF LUNCH.
--- NOTE | 2018-09-16 13:40 | NUR ---
DR. GRAVES AT BEDSIDE FOR ASSESSMENT AND TO DISCUSS PLAN OF CARE. NEW ORDERS RECIEVED.
--- NOTE | 2018-09-16 14:00 | NUR ---
PT RESTING IN BED. OTOOLE REMAINS PATENT DRAINING TO BSD, MELVI URINE. PT RESPIRATIONS EVEN/UNLABORED. AFEBRILE. PT REPOSITIONED, HEELS REMAIN OFFLOADED.
--- NOTE | 2018-09-16 15:00 | NUR ---
PT REQUESTED CAROLINE OCAMPO, REQUEST GRANTED.
--- NOTE | 2018-09-16 16:48 | NUR ---
PT RESTING IN BED, EYES CLOSED. REMAIN SR ON TELEMETRY, OFFERS NO COMPLAINTS AT THIS TIME. BED IN LOWEST POSITION, CALL LIGHT IN REACH, WILL MONITOR.
--- NOTE | 2018-09-16 17:23 | NUR ---
PT WAS SEEN RESTING IN BED, WAS AGITATED AND TALKING TO HERSELF. SHE REPEATEDLY SAID SHE WANTED TO TALK TO HER SISTER OTF TO PICK HER UP FROM THE HOSPITAL BEC SHE WANTED TO GO HOME. AFTER EXPLANATIONS, PT AGREED TO COOPERATE WITH THERAPY. SHE DID SUPINE TO SIT ON EOB WITH MIN A AND VERBAL CUES. SHE THEN STOOD UP WITH MULTIPLE ATTEMPTS AND MOD. A OF 1. PT WAS VERY UNSTABLE IN STATIC STANDING POSITION AND WAS ONLY ABLE TO MAINTAIN FOR 20 SECONDS. PT WAS ABLE TO COMPETE AT LEAST 3 SETS OF STANDING TOLERATED WITH LACK OF CONTROL SITTING BACK DOWN ON BED. PT CONTINUED TO WEEP LOOKING FOR HER SISTER. SHE WAS ASSISTED BACK TO BED IN SUPINE. SAFETY MEASURES TAKEN.
--- NOTE | 2018-09-16 17:40 | NUR ---
PT MOANING OUT, KICKING LLE OVER BEDSIDE, PT YELLING THAT SHE WANTS TO LOOK OUT THE WINDOW, WINDOW OPEN. PT MEDICATED PRN FOR ANXIETY, WILL CONTINUE TO MONITOR.
--- NOTE | 2018-09-16 18:00 | NUR ---
PT FED DINNER, PT ATE 100% WITHOUR DIFFICULTY. PT REPOSITIONED FOR COMFORT. HEELS REMAIN OFF-LOADED. NS CONTINUES INFUSING AT 50ML/HR, NO S/S OF INFILTRATION OR REDNESS NOTED AT SITE. PT DENIES PAIN AT THIS TIME, LUE REMAINS IN SLING. CALL LIGHT IN REACH, WILL MONITOR.
--- NOTE | 2018-09-16 18:45 | NUR ---
REPORT FROM Carly MURO RN. ASSUMED PT. CARE.
--- NOTE | 2018-09-16 19:35 | NUR ---
PT. RESTING IN BED WITH EYES CLOSED. DENIES COMPLAINTS OF PAIN OR NEEDS. HEELS OFFLOADED. PT. REPOSITIONED FOR COMFORT. ORIENTED TO PERSON, PLACE, MONTH AND YEAR. REMAINS WITH ODD, FLAT AFFECT AND RANDOM STATEMENTS ALONG A VARIETY OF TOPICS. RESPS EVEN AND UNLABORED. LUNGS CTA. BOWEL SOUNDS ACTIVE THROUGHOUT. VSS. IV FLUIDS CONTINUE TO INFUSE ORDERED. CALL LIGHT REMAINS WITHIN REACH. WILL CONTINUE TO ASSESS.
--- NOTE | 2018-09-16 21:32 | NUR ---
PT. MEDICATED PER PHYSICIAN ORDERS. COOPERATIVE AT THIS TIME. PROVIDED WITH FRESH WATER. AGAIN DENIES COMPLAINTS OF PAIN OR NEED.
--- NOTE | 2018-09-16 23:22 | NUR ---
PT. RESTING IN BED WITH EYES CLOSED IN NO DISTRESS. DENIES COMPLAINTS OF PAIN OR NEED AT THIS TIME. RESPS REMAIN EVEN AND UNLABORED.
[2018-09-17] VITALS (10 sets, daily range): BP systolic 87–121; BP diastolic 49–77
--- NOTE | 2018-09-17 00:31 | NUR ---
PT. CONTINUES TO REST WITH EYES CLOSED IN NO DISTRESS. VSS. REMAINS SINUS ON THE MONITOR. CALL LIGHT REMAINS WITHIN REACH. WILL CONTINUE TO MONITOR.
--- NOTE | 2018-09-17 02:25 | NUR ---
PT. REPOSITIONED SHE HAD HER LEGS HANGING OFF THE BED AND HER GOWN PULLED OVER HER HEAD. REPOSITIONED IN THE BED AND HEELS OFF LOADED. DENIES OTHER COMPLAINTS. WILL CONTINUE TO MONITR.
--- NOTE | 2018-09-17 04:22 | NUR ---
PT. RESTING WITH EYES CLOSED IN NO DISTRESS. IV FLUIDS INFUSING PER PHYSICIAN ORDERS. REMAINS SINUS RHYTHM WITH STABLE BP. SKIN REMAINS WARM AND DRY. AFEBRILE. CALL LIGHT REMAINS WITHIN REACH. WILL CONTINUE TO ASSESS.
--- NOTE | 2018-09-17 05:46 | NUR ---
Pt. resting well with eyes closed in no distress. Remains calm and cooperative with caregivers. BP slightly low at this time. Will continue to monitor as Pt. sleeping fairly soundly. Call light remains within reach.
--- NOTE | 2018-09-17 06:45 | NUR ---
RECIEVED REPORT FROM LALITO MEYER. ASSUMED PT CARE.
--- NOTE | 2018-09-17 07:00 | NUR ---
PT RESTING IN BED, A&0X3, ABLE TO MAKE NEEDS KNOWN. PERRL. SR ON TELEMETRY, HR- 69, B/P- 115/67, T-97.8, R-8, SA02@100% RA. RESPIRATIONS EVEN/UNLABORED, LS CLEAR THROUGHOUT, ABDOMEN SOFT/DISTENDED, NON-TENDER, BSX4 ACTIVE. CURRENTLY ON LACTULOSE, LAST BM 09-15-18. OTOOLE REMAINS PATENT DRAINING TO BSD, PALE YELLOW URINE. OTOOLE CARE PROVIDED. DUODERM TO GLUTEAL FOLD INTACT, SCAB TO BLE, S/S INTACT TO RFA, HEELS IN HEEL PROTECTOR, OFFLOADED. 22G TO RW INFUSING @50ML/HR, NO S/S OF INFILTRATION OR REDNESS AT SITE. PT GIVEN WARM BLANKET PER REQUEST.. PT DENIES CHEST PAIN, SOB OR DISTRESS AT THIS TIME. CALL LIGHT IN REACH, WILL MONITOR.
--- NOTE | 2018-09-17 07:59 | NUR ---
DIETARY ON UNIT, BREAKFAST TRAY SET UP, TOTAL ASSIST WITH FEEDING, PT CONSUMED 100% WITHOUT DIFFICULTY. PT RESTING IN BED, EYES CLOSED, CALL LIGHT IN REACH. WILL MONITOR.
--- NOTE | 2018-09-17 09:18 | NUR ---
FLACO & AYDEE FROM PT AT BEDSIDE, ROM AND STANDING EXERCISES DONE.
--- NOTE | 2018-09-17 09:50 | NUR ---
PT MOANING OUT LOUDLY, YELLING FOR THE ELECTRICITY TO STOP, AND SHE WANTED SOME RAW STEAK WITH KETCHUP. PT MEDICATED FOR INCREASED ANXIETY PER ORDERS . PT REPOSITIONED FOR COMFORT AND ALL LEADS CHECKED, HEELS OFF-LOADED WITH HEEL PROTECTORS ON, LUE IN SLING AND ELEVATED ON PILLOW FOR EDEMA.
--- NOTE | 2018-09-17 10:30 | NUR ---
PT GIVEN COMPLETE BED BATH, LINEN CHANGE AND MOUTH CARE. PT TOLERATED WELL. CALL LIGHT IN REACH.
--- NOTE | 2018-09-17 12:00 | NUR ---
PT REPOSITIONED, TOTAL ASSIST WITH FEEDING. PT ATE 100% WITHOUT DIFFICULTY.
--- NOTE | 2018-09-17 14:00 | NUR ---
PT RESTING IN BED, REPOSITIONED FOR COMFORT, HEELS REMAIN OFFLOADED IN HEEL PROTECTORS, LUE ELEVATED ON PILLOW FOR EDEMA. RADIAL PULSE PRESENT, CAP REFILL<3SEC. PT OFFERS NO COMPLAINTS AT THIS TIME. CALL LIGHT IN REACH, WILL MONITOR.
--- NOTE | 2018-09-17 16:00 | NUR ---
PT REPOSTIONED FOR COMFORT, CALL LIGHT IN REACH, WILL MONITOR.
--- NOTE | 2018-09-17 18:02 | NUR ---
PT ENCOURAGED TO FEED SELF, PT STARTED MOANING, SAYING I CANT, I JUST CANT. PT REQUIRED TOTAL FEED AFTER MULTIPLE ATTEMPT TO GET HER TO FEED HERSELF EVEN WITH ASSIST AND CUES. PT ATE 100%, WIHOUT DIFFICULTY.
--- NOTE | 2018-09-17 19:41 | NUR ---
REPORT GIVEN BY RANJEET STARKEY. PATIENT RESTING WITH EYES CLOSED IN BED. RESP EVEN AND UNLABORED. NO S/S OF DISTRESS NOTED AT THE TIME. OTOOLE DRAINING CLEAR, YELLOW, URINE.
--- NOTE | 2018-09-17 20:47 | NUR ---
PATIENT REFUSING NIGHTTIME INSULIN. SHE STATES SHE IS NOT A DIABETIC AND DOESN'T UNDERSTAND WHY WE ARE GIVING HER INSULIN. SHE WAS INFORMED ABOUT WHY SHE WAS BEING GIVEN THE INSULIN BUT STILL STATES SHE DOESN'T WANT THE MEDICATION.
[2018-09-18 00:14] VITALS: BP 132/76
--- NOTE | 2018-09-18 00:29 | NUR ---
PATIENT RESTING WITH EYES CLOSED. RESP EVEN AND UNLABORED. NO S/S OF DISTRESS NOTED.
--- NOTE | 2018-09-18 04:01 | NUR ---
PATIENT RESTING WITH EYES CLOSED. RESP EVEN AND UNLABORED. NO S/S OF DISTRESS NOTED. OTOOLE PATENT WITH CLEAR, YELLOW URINE. HEELS FLOATED WITH HEEL PROTECTORS IN PLACE. IV FLUIDS INFUSING. IV SITE CDI, NO REDNESS OR SWELLING AT THE SITE.
--- NOTE | 2018-09-18 04:36 | NUR ---
PATIENT REFUSING TO LET THE FURNITURE LUMBER PRODUCTION WORKER TO DRAW BLOOD. SHE STATES SHE IS ONLY HERE FOR LOW BLOOD PRESURE. i INFORMED HER THAT THE DOCTOR NEEDS HER LABWORK TO BE DRAWN. AT THAT POINT SHE CALLED ME A LIAR AND IS STILLING REFUSING LAB TO DRAW HER BLOOD.
[2018-09-18 04:45] VITALS: BP 112/66
--- NOTE | 2018-09-18 06:30 | NUR ---
RECIEVED REPORT FROM LALITO BRODERICK. ASSUMED PT CARE.
--- NOTE | 2018-09-18 07:00 | NUR ---
PT A&OX3 ABLE TO MAKE NEEDS KNOWN, HR-60, B/P-115/68, RR-16, SA02@96%RA, AFEBRILE. RESPIRATIONS EVEN/UNLABORED, LS CLEAR THROUGHOUT, ABDOMEN SOFT/DISTENDED, NON-TENDER. BSX4 ACTIVE. OTOOLE TO BSD REMAIN PATENT, CLEAR PALE YELLOW URINE NOTED, OTOOLE CARE GIVEN. LUE IN SLING ELEVATED ON PILLOW D/T EDEMA, RADIAL P+, CAP REFILL<3SEC, BUE GRASP STRONG/EQUAL. DUODERM TO GLUTEAL FOLD CDI. SCAB REMAIN TO BLE, DRY/NON-DRAINING. S/S TO RFA CDI.HEELS OFFLOADED WITH HEEL PROTECTORS IN PLACE. PT REPOSITIONED FOR COMFORT. PT NOED WITH 22G TO RW DISLODGED, CATHETER INTACT, SITE WITH NO S/S OF INFILTRATION OR REDNESS NOTED. PT DOESN'T RECALL HOW IT HAPPENED. BED IN LOWEST POSITION, CALL LIGHT IN REACH, WILL MONITOR.
[2018-09-18 07:02] VITALS: BP 115/68
--- NOTE | 2018-09-18 08:00 | NUR ---
DIETARY ON UNIT, PT REMAINS A TOTAL FEED, PT CONSUMED 100% OF BREAKFAST.
--- NOTE | 2018-09-18 08:13 | NUR ---
Patient seen 09/17/18 She is able to gett OOB to stand with mod max assist of 1. She demonstrates good potential for improved postural stability and increased independence. She worked on bed mobility. transfer training and static standing balance all of which required mod max assist of 1. The patient demonstrates good potential for SNF or IRF
--- NOTE | 2018-09-18 09:03 | NUR ---
NOTIFIED DEEPALI AMARAL OF DISLODGED IV. PER DEEPALI AMARAL HOLD OFF NEW IV START UNTIL DR. GRAVES AND HER COULD MAKE ROUNDS AND EVALUATE.
--- NOTE | 2018-09-18 09:39 | NUR ---
PT REFUSED AM MEDICATIONS (SEE MAR), PT ASKED TO RECONSIDER, SHE STATED "NO ITS MY BODY & I DONT WANT IT!" WILL MONITOR.
[2018-09-18 11:00] VITALS: BP 109/62
--- NOTE | 2018-09-18 11:00 | NUR ---
PT ASSISTED TO BSC, XL BM. JUNAID CARE AND OTOOLE CARE PROVIDED, PT THEN GIVEN BED BATH WITH BACK MASSAGE, PT TOLERATED TRANSFER WELL. ASSISTED BACK TO BED, NEW DUODERM APPLIED, WOUND CDI, WITH SURROUNDING TISSUE HEALTHY AND PINK. HEELS OFFLOADED WITH HEEL PROTECTORS ON. LUE REMAINS IN SLING AND ELEVATED ON PILLOW. CALL LIGHT IN REACH, WILL MONITOR.
--- NOTE | 2018-09-18 12:00 | NUR ---
DIETARY ON UNIT, LUNCH TRAY SET UP, PT REMAINS A TOTAL FEED. PT CONSUMED 100% OF MEAL.
--- NOTE | 2018-09-18 12:35 | NUR ---
PER DR. GRAVES, LEAVE IV OUT, CONTINUE WITH PO FLUIDS AND CONTINUE TO MONITOR I&O.
--- NOTE | 2018-09-18 13:30 | NUR ---
JAZLYN FROM CM AT BEDSIDE TO CONSENT FOR PLACEMENT, PT REFUSED STATED SHE WANTS TO GO TO HER SISTERS "OTF". GHASSAN Guzman CALLED OTF, SISTER STATED SHE DID NOT HAVE A PLACE FOR HER AND SHE HAD A CURRENT RESTRAINING ORDER IN PLACE AGAINST PT.
--- NOTE | 2018-09-18 13:40 | NUR ---
CHAD FROM PT AT BEDSIDE, PT REFUSED TO COOPERATE AT THIS TIME.
--- NOTE | 2018-09-18 13:46 | NUR ---
PT GAVE VERBAL CONSENT TO GO TO [facility] TO GHASSAN HOBSON AND MYSELF.
--- NOTE | 2018-09-18 14:00 | NUR ---
PT ASSISTED TO BSC, XL BM. PERICARE PROVIDED. PT ASSISTED BACK TO BED, OTOOLE CATHETER REMOVED PER ORDER. 10ML BALLOON DEFLATED, OTOOLE PULLED WITHOUT RESISTANCE. PT TOLERATED WELL. PT REQUESTED STRONGLY TO HAVE A BREIF IN PLACE, REQUEST GRANTED.
[2018-09-18 15:00] VITALS: BP 111/59
--- NOTE | 2018-09-18 16:55 | NUR ---
PT REFUSED TO ALLOW STAFF TO PERFORM ACCUCHECK. PT STATED..." I AM OVER 23 AND IN MY RIGHT MIND, I CANT REFUSED IT AND I AM." PT EDUCATED ON THE RISKS OF POSSIBILE HYPO/HYPERGLYCEMIA N/V, DIAPHORESIS, COMA EVEN . PT CONTINUES TO REPEAT ABOVE STATEMENT AND REFUSES. WILL MONITOR.
--- NOTE | 2018-09-18 17:50 | NUR ---
DIETARY ON UNIT, PT CONSUMED 100%, FED BY STAFF.
--- NOTE | 2018-09-18 19:15 | NUR ---
EKTA REPORTED TO THIS LOSS PREVENTION REPRESENTATIVE THAT PT REFUSED VITAL SIGNS. ENCOURAGED PT TO LET US CHECK BP AND SHE STATED NO
--- NOTE | 2018-09-18 19:30 | NUR ---
PT RESTING IN BED AWAKE. PT IS ALERT AND ORIENTED X3. PT REFUSING TO SPEAK TO BRIM POUNCER IN BEGINNING OF ASSESSMENT THEN PATIENT BEGAN TO SPEAK. SHIFT ASSESSMENT COMPLETED AT THIS TIME. NO IV NOTED MD AWARE BY PREVIOUS SHIFT. PT ASSISTED TO BSC TO VOID. PT VOIDED 600CC OF CLEAR YELLOW URINE. PT ASSISTED BACK TO BED. PT TOLERATED TRANSFER WELL. CALL LIGHT IN REACH. WILL CONTINUE TO MONITOR.
--- NOTE | 2018-09-18 23:11 | NUR ---
PT RESTING IN BED WITH EYES CLOSED. RESP ARE EVEN AND UNLABORED. NO DISTRESS NOTED. CALL LIGHT IN REACH. WILL CONTINUE TO MONITOR
--- NOTE | 2018-09-19 00:30 | NUR ---
PT REPOSITIONED IN BED. PICTURES OBTAINED OF WOUNDS AND PLACED ON CHART AT THIS TIME. DUPDERM REMOVED FROM LEFT BUTTOCKS DUE TO NO OPEN WOUND NOTED AT THIS TIME. CALL LIGHT IN REACH. WILL CONTINUE TO MONITOR
--- NOTE | 2018-09-19 03:34 | NUR ---
ASSISTED PT TO BSC TO VOID AND THEN ASSISTED BACK TO BED. PT REFUSED AM VITALS AT THIS TIME. RESP ARE EVEN AND UNALBORED. NO DISTRESS NOTED. CALL LIGHT IN REACH. WILL CONTINUE TO MONITOR
--- NOTE | 2018-09-19 05:00 | NUR ---
PT REFUSED AM LABS.
--- NOTE | 2018-09-19 06:50 | NUR ---
RECVD REPORT FROM LALITO HAYES. PT RESTING IN BED.
--- NOTE | 2018-09-19 06:58 | NUR ---
PT REFUSED AM ACCUCHECK
--- NOTE | 2018-09-19 07:00 | NUR ---
PT REFUSED ACCUCHECK.
--- NOTE | 2018-09-19 08:15 | NUR ---
REQUESTED SCRAMBLED EGGS FROM [employer] PER PT REQUEST. PT FEED EGGS & ENSURE. REFUSED OTHER FOOD.
--- NOTE | 2018-09-19 10:01 | NUR ---
PT ASSISTED UP TO BSC FOR URINATION. MINIMUM ASSIST x2. PT WIPED SELF. 300CC PALE YELLOW URINE OUTPUT. NYSTATIN APPLIED TO PTS BUTTOCK AREA. PT ASSITED BACK TO BED.
--- NOTE | 2018-09-19 11:25 | NUR ---
PT REFUSED ACCUCHECK
--- NOTE | 2018-09-19 11:45 | NUR ---
PT BEING FEED LUNCH. REFUSED ACCUCHECK & MEDICATIONS.
--- NOTE | 2018-09-19 12:00 | NUR ---
PT ASSISTED UP TO BSC TO URINATE.
[2018-09-19 12:54] VITALS: BP 140/69
--- NOTE | 2018-09-19 13:03 | NUR ---
PT LAYING IN BED, ON LEFT SIDE, LOOKING OUT THE WINDOW QUIETLY. HEELS OFFLOADED.
--- NOTE | 2018-09-19 14:06 | NUR ---
PT CRYING IN BED. STATING SHE "HAS TO PEEPEE NURSE".
--- NOTE | 2018-09-19 14:18 | NUR ---
PT ASSISTED UP TO BSC TO URINATE. PT HELPED. NO NEW NEEDS/CONCERNS AT THIS TIEM. WILL CONTINUE TO MONITOR.
--- NOTE | 2018-09-19 14:48 | NUR ---
PT APPEARS TO BE SLEEPING IN BED. NO S/S OF DISTRESS. CALLBELL W/IN REACH. WILL CONTINUE TO MONITOR.
--- NOTE | 2018-09-19 15:03 | NUR ---
DR BUTTERFIELD & MUNIR,MICROWAVE SUPERVISOR @BEDSIDE WITH PT.
[2018-09-19] MEDS ORDERED: LORAZEPAM0.5 MG PO (15:17)
[2018-09-19] MEDS ORDERED: NYSTOP100000 UNI TOP (15:17)
[2018-09-19] MEDS ORDERED: ULTRAM50 M1 PO ×2 (15:17→15:18)
[2018-09-19] MEDS ORDERED: TRAMADOL HYDROC50 MG PO (15:50)
[2018-09-19] MEDS ORDERED: ATIVAN0.5 MG PO (15:50)
--- NOTE | 2018-09-19 16:00 | NUR ---
[facility] ETA 1630 FOR TRANSPORT TO [facility].
--- NOTE | 2018-09-19 16:25 | NUR ---
REPORT GIVEN TO ANGÉLICA STORY AT [phone].
--- NOTE | 2018-09-19 17:30 | NUR ---
PT OUT THE DOOR WITH [facility] FOR TRANSPORTATION TO [facility] IN STABLE CONDITION.
--- NOTE | 2018-09-19 17:38 | NUR ---
PTS SHOES PLACED IN BELONGINGS BAG & LABELED, IN ICU SOILED UTILITIES ROOM
== END 2018-09-19 17:27 | DRG 92 ==
LOC: ED 07:02 → ED-I 07:32 → ED 07:32 → ED-I 09:58 → ED 10:20 → ICU 10:21
PROVIDERS: Family Medicine; ADMIT Internal Medicine Nephrology; ATTEND Internal Medicine Nephrology
PROC: 0T9B70Z Drainage of Bladder with Drainage Device, Via Natural or Artificial Opening (ICD-10-PCS; 2018-09-11)
PROC: 06HY33Z Insertion of Infusion Device into Lower Vein, Percutaneous Approach (ICD-10-PCS; 2018-09-11)
PROC: 30233N1 Transfusion of Nonautologous Red Blood Cells into Peripheral Vein, Percutaneous Approach (ICD-10-PCS; principal; 2018-09-12)
PROC: 30233N1 Transfusion of Nonautologous Red Blood Cells into Peripheral Vein, Percutaneous Approach (ICD-10-PCS; 2018-09-12)
DX: G92 Toxic encephalopathy (principal); E46 Unspecified protein-calorie malnutrition; F20.0 Paranoid schizophrenia; T43.505A Adverse effect of unspecified antipsychotics and neuroleptics, initial encounter; T40.2X5A Adverse effect of other opioids, initial encounter; T42.4X5A Adverse effect of benzodiazepines, initial encounter; E11.65 Type 2 diabetes mellitus with hyperglycemia; R68.0 Hypothermia, not associated with low environmental temperature; E03.9 Hypothyroidism, unspecified; E86.0 Dehydration; K56.41 Fecal impaction; D63.8 Anemia in other chronic diseases classified elsewhere; R33.0 Drug induced retention of urine; L89.152 Pressure ulcer of sacral region, stage 2; B36.9 Superficial mycosis, unspecified; I95.9 Hypotension, unspecified; S42.342D Displaced spiral fracture of shaft of humerus, left arm, subsequent encounter for fracture with routine healing; W19.XXXD Unspecified fall, subsequent encounter; Z68.25 Body mass index [BMI] 25.0-25.9, adult; Z91.19 Patient's noncompliance with other medical treatment and regimen
CPT/HCPCS: J1650; J1756; J2060; P9016